=== PATIENT | male | born 1990 | race Caucasian/White ===

== ENCOUNTER 2017-11-08 10:22 | Emergency (ER) | payer BC ==
[2017-11-08 10:30] VITALS: BP 129/75
--- NOTE | 2017-11-08 10:42 | UC ---
Skin Complaint HPI - HPI Summary HPI Summary: Pt presents with itchy, red rash to lower right medial leg, RLQ abdomen, right forearm. Pt states that rash is spreading and creates a small blister and drains clear fluid. Pt unsure if exposed to poison amelie. - History of Current Complaint Chief Complaint: UCRash Time Seen by Provider: 11/08/17 10:33 Stated Complaint: RASH Hx Obtained From: Patient Onset/Duration: Sudden Onset, Lasting Days, Still Present Skin Exposure Onset/Duration: Days Ago Timing: Constant Onset Severity: Mild Current Severity: Moderate Pain Intensity: 0 Location: Generalized Character: Pruritus, Redness, Raised Aggravating Factor(s): Touch Alleviating Factor(s): Unknown Associated Signs & Symptoms: Positive: Rash, Drainage, Tenderness Related History: Possible Reaction to: Environmental Exposure - Allergy/Home Medications Allergies/Adverse Reactions: Allergies Allergy/AdvReac Type Severity Reaction Status Date / Time No Known Allergies Allergy Verified 11/08/17 10:31 Review of Systems Constitutional: Negative Skin: Rash Eyes: Negative ENT: Negative Respiratory: Negative Cardiovascular: Negative Gastrointestinal: Negative Genitourinary: Negative Motor: Negative Neurovascular: Negative Musculoskeletal: Negative Neurological: Negative Psychological: Negative Is Patient Immunocompromised?: No All Other Systems Reviewed And Are Negative: Yes PMH/Surg Hx/FS Hx/Imm Hx Previously Healthy: Yes - Surgical History Surgical History: None - Family History Known Family History: Positive: Cardiac Disease - Social History Occupation: Employed Full-time Lives: With Family Alcohol Use: Daily Substance Use Type: None Smoking Status (MU): Never Smoked Tobacco Physical Exam Triage Information Reviewed: Yes Appearance: Well-Appearing Vital Signs: Initial Vital Signs Temp 98 F 11/08/17 10:26 Pulse 90 11/08/17 10:26 Resp 16 11/08/17 10:26 BP 129/75 11/08/17 10:26 Pulse Ox 100 11/08/17 10:26 Vital Signs Reviewed: Yes Eye Exam: Normal ENT: Positive: Hearing grossly normal Dental Exam: Normal Neck exam: Normal Respiratory: Positive: No respiratory distress Musculoskeletal Exam: Normal Neurological Exam: Normal Psychological Exam: Normal Skin: Positive: rashes - erythematous, sacttered clear fluid filled blisters. Course/Dx - Differential Diagnoses - Skin Complaint Differential Diagnoses: Cellulitis, Poison Amelie - Diagnoses Provider Diagnoses: poison amelie. contact dermatitis Discharge - Sign-Out/Discharge Documenting (check all that apply): Patient Departure - Discharge Plan Condition: Stable Disposition: HOME Prescriptions: predniSONE TAB* [Deltasone 10 MG TAB*] 30 mg PO DAILY #12 tab Patient Education Materials: Antihistamine (By mouth), Poison Amelie (ED) Referrals: [facility] [Outside] No Primary Care Phys,NOPCP [Primary Care Provider] - - Billing Disposition and Condition Condition: STABLE Disposition: Home Attestation Statement User Type: Provider - I was available for consult. This patient was seen by the JOAO. The patient was not presented to, seen by, or examined by me. -Kwame
== END 2017-11-08 10:57 | disposition home or self-care (01) ==
LOC: UCEAST 10:22
DX: L03.90 Cellulitis, unspecified (principal); L23.7 Allergic contact dermatitis due to plants, except food
CPT/HCPCS: 99202; G0463